=== PATIENT | female | born 1960 | race Hispanic/Latino ===

== ENCOUNTER 2020-01-11 10:46 | Emergency (ER) | payer MEDICARE ==
[~2020-01-11] VITALS: Ht 157.5 cm; Wt 67.6 kg
[2020-01-11] MEDS ORDERED: SODIUM CHLORIDE 0.9% 1000ML 1,000 ML IV STA (10:48)
--- NOTE | 2020-01-11 10:53 | Emergency Department Note ---
History of Present Illnes History of Present Illness History of Present Illness This is a 59 year old female presents with epigastric pain with n/v. Denies fevers or CP. Recent diagnosis of ovarian CA May 2019 with resultant colon resection followed by reversal. Recent complication of abscess formation following colostomy reversal with resultant new colostomy placement 2 weeks ago. . Historian: Patient, Family Member Arrival Mode: Car Onset (how long ago): day(s) (2) Location: epigastric Severity: moderate Onset quality: gradual Duration (how long): day(s) (2) Timing of current episode: constant Progression: worsening Chronicity: new Context: Denies recent illness, Denies recent surgery, Denies recent immobilization, Denies recent travel, Denies trauma/injury, Denies new medications, Denies hx of DVT/PE, Denies non-compliance w/ medications, Denies o ther Exacerbating factors: eating Associated symptoms: Reports nausea/vomiting Treatments prior to arrival: none Past Medical/Family History Physician Review I have reviewed the patient's past medical and family history. Any updates have been documented here. Past Medical History Other Medical History: Ovarian CA Past Surgical History: Colon Resection Other Surgery: Colostomy Social History Smoking Cessation: Never Smoker Alcohol Use: None Any Illegal Drug Use: No Review of Systems Review of Systems Constitutional: Reports weakness; Denies fever Gastrointestinal: Reports nausea, Reports vomiting Physical Exam Related Data Allergies: Coded Allergies: apple (Verified Allergy, Unknown, 01/11/20) peach (Verified Allergy, Unknown, 01/11/20) Vital signs reviewed: Yes Physical Exam CONSTITUTIONAL Constitutional: Present cachectic; Absent well-nourished, Absent obese, Absent distressed, Absent ill appearing HENT HENT: Present normocephalic, Present atraumatic, Present oropharynx clear/moist, Present nose normal HENT L/R: Present left ext ear normal, Present right ext ear normal EYES Eyes: Reports PERRL, Reports conjunctivae normal NECK Neck: Present ROM normal PULMONARY Pulmonary: Present effort normal, Present breath sounds normal CARDIOVASCULAR Cardiovascular: Present regular rhythm, Present heart sounds normal, Present capillary refill normal, Present normal rate GASTROINTESTINAL Abdominal: Present soft, Present nontender, Present bowel sounds normal GENITOURINARY Genitourinary: Present exam deferred SKIN Skin: Present warm, Present dry MUSCULOSKELETAL Musculoskeletal: Present ROM normal NEUROLOGICAL Neurological: Present alert, Present oriented x 3, Present no gross motor or sensory deficits PSYCHOLOGICAL Psychological: Present mood/affect normal, Present judgement normal Results Laboratory Lab results reviewed: Yes Imaging Imaging results reviewed: Yes Impressions [place] [id number] Patient Name: ARLENE BALL MR #: [id number] : 1960 Age/Sex: 59/F Req #: [id number] Adm Physician: Ordered by: TOM MONTESINOS DO Report #: [id number] Location: ER Room/Bed: Procedure: [id number] CT/CT ABDOMEN/PELVIS W Exam Date: 01/11/20 Exam Time: 1230 REPORT STATUS: Signed CT of the abdomen and pelvis with contrast TECHNIQUE: CT of the abdomen and pelvis WITH intravenous contrast and WITH oral contrast. Dose modulation, iterative reconstruction, and/or weight-based adjustment of the mA/kV was utilized to reduce the radiation dose to as low as reasonably achievable. IV CONTRAST: 100 mL of Isovue-370 ORAL CONTRAST: Gastrografin RADIATION DOSE: Total DLP: 659.33 mGy*cm COMPLICATIONS: None INDICATION: ^epigastric , r/o SBO ^[id number] ^1230. COMPARISON: None. FINDINGS: LOWER THORAX: Unremarkable. HEPATOBILIARY: No focal hepatic lesions. Gallbladder is unremarkable. No biliary ductal dilatation. SPLEEN: No splenomegaly. PANCREAS: No focal masses or ductal dilatation. ADRENALS: No adrenal nodules. KIDNEYS/URETERS: No hydronephrosis, stones, or masses. PELVIC ORGANS/BLADDER: Urinary bladder is unremarkable. PERITONEUM/RETROPERITONEUM: No free air or fluid. LYMPH NODES: No lymphadenopathy. VESSELS: Left ovarian vein thrombus is noted, nonspecific. Negative for abdominal aortic aneurysm.. GI TRACT: Oral contrast is identified within the stomach, small bowel loops and extending into the colon to the level of the left lower quadrant colostomy. There is mild questionable wall thickening of the transverse colon and left lower quadrant colostomy which could relate to artifact of under distention versus colitis. No surrounding drainable fluid collection is identified. At the level of the rectal stump there is extraluminal fluid and air best visualized on coronal imaging (images 61 through 72). Collection of fluid and air is noted adjacent to the suture material at the level of the rectal stump. The collection extends to the vaginal cough which demonstrates intraluminal air, nonspecific. Negative for obstruction. BONES AND SOFT TISSUES: No acute osseous abnormality. T12 vertebral angioma is noted. No suspicious lytic or blastic lesion is identified. Midline surgical scar is noted in the infraumbilical region. IMPRESSION: 1. Post surgical changes from left lower quadrant colostomy and creation of rectal stump. -There is questionable wall thickening of the transverse colon extending to the left lower quadrant colostomy which could relate to mild colitis. No adjacent fluid collection is noted. No evidence of obstruction. -At the level of the rectal stump there is a small collection of predominantly air and a small amount of fluid extending from the stump into the adjacent pelvic soft tissues, this is best visualized on coronal imaging. This collection does extend to the vaginal cuff. This could relate to postsurgical change if the surgery was performed recently. Air is also noted within the vaginal cuff which is nonspecific and could relate to recent sexual activity vs. fistula from adjacent fluid collection. Correlate with symptoms and history. 2. Incidentally noted left ovarian vein thrombus. Signed by: Shola Weeks MD on 01/11/2020 1:05 PM Dictated By: SHOLA WEEKS MD 1305 Transcribed By: JOCELYNE on 01/11/20 1305 COPY TO: TOM MONTESINOS DO~ Procedures 12 Lead ECG Interpretation ECG Interpretation : ECG: ECG 1 Apparel Merchandiser: Interpreted by ED physician Date: Jan 11, 2020 Time: 13:54 Prior ECG tracings: reviewed Rhythm: sinus rhythm Rate: normal BPM: 94 QRS axis: normal ST segments normal: Yes T waves normal: Yes Clinical Impression: normal ECG Assessment & Plan Medical Decision Making MDM Diff DX : ACS, SBO, biliary bathology, dehydration Assessment & Plan Final Impression: (1) Colitis Depart Disposition: TRANS TO OTHER [facility] TOM MONTESINOS DO Jan 11, 2020 10:53
[2020-01-11] MEDS ORDERED: DIATRIZOATE MEGL/DIATRIZOA SOD 30 ML BTL PO ONE (11:02)
[2020-01-11] MEDS ORDERED: IOPAMIDOL 370 MG/ML 50ML INFUS..BTL INJ ONE (11:06)
[2020-01-11] MEDS ORDERED: ONDANSETRON HCL INJ 2MG/ML 2ML 2 MG/ML VIAL IV STA ×2 (11:16→12:17)
[2020-01-11 11:39] LABS: BASOPHILS % 0.2 % (0.0-1.0); HEMATOCRIT 35.8 % (34.2-44.1); HEMOGLOBIN 11.3 g/dL (12.0-16.0); LYMPHOCYTES # (AUTO) 2.6 (1.0-3.2); LYMPHOCYTES % 45.3 % (18.0-39.1); MEAN CORPUSCULAR HEMOGLOBIN 27.9 pg (28-32); MEAN CORPUSCULAR HGB CONC 31.6 g/dL (31-35); MEAN CORPUSCULAR VOLUME 88.4 fL (81-99); MONOCYTES # (AUTO) 0.4 (0.2-0.8); MONOCYTES % 7.3 % (4.4-11.3); NEUTROPHILS # (AUTO) 2.7 (2.1-6.9); NEUTROPHILS % 46.3 % (38.7-80.0); PLATELET COUNT 265 x10e3/uL (140-360); RED BLOOD COUNT 4.05 x10e6/uL (3.6-5.1); RED CELL DISTRIBUTION WIDTH 15.7 % (11.7-14.4)
[2020-01-11 11:44] LABS: CLARITY,URINE CLEAR (CLEAR); COLOR,URINE YELLOW (YELLOW); KETONES,URINE NEGATIVE (NEGATIVE); LEUKOCYTE ESTERASE ,URINE NEGATIVE (NEGATIVE); NITRITE,URINE NEGATIVE (NEGATIVE); PROTEIN,URINE DIPSTICK TRACE (NEGATIVE); URINE UROBILINOGEN 0.2 mg/dL (0.2 - 1)
[2020-01-11 11:45] LABS: BILIRUBIN,URINE NEGATIVE (NEGATIVE)
[2020-01-11 11:53] LABS: ALANINE AMINOTRANSFERASE 11 IU/L (0-55); ALBUMIN 4.5 g/dL (3.5-5.0); ALBUMIN/GLOBULIN RATIO 1.1 (0.8-2.0); ALKALINE PHOSPHATASE 71 IU/L (40-150); BLOOD UREA NITROGEN 13 mg/dL (7-26); BUN/CREATININE RATIO 18 (6-25); CARBON DIOXIDE 26 mmol/L (22-29); CHLORIDE 101 mmol/L (98-107); CREATININE, SERUM 0.74 mg/dL (0.57-1.11); EST GLOMERULAR FILTRATION RATE > 60 ML/MIN (60-); GLUCOSE 116 mg/dL (74-118); SODIUM 139 mmol/L (136-145)
--- NOTE | 2020-01-11 12:00 | NUR ---
Pt's most recent surgery at [facility]
--- NOTE | 2020-01-11 12:02 | NUR ---
Pt's dr was Dr Ana Harman.
[2020-01-11 12:05] LABS: BACTERIA,URINE FEW /HPF; EPITHELIAL CELLS,URINE FEW /LPF; RBC,URINE 0-5 /HPF (0-5); WBC,URINE (MAN) 0-5 /HPF (0-5)
[2020-01-11] MEDS ORDERED: MORPHINE SULFATE INJ 4 MG/ML INJ 1ML IV STA (12:17)
--- NOTE | 2020-01-11 12:20 | NUR ---
called [facility] for transfer.
--- NOTE | 2020-01-11 13:08 | Diagnostic Imaging Report ---
CT of the abdomen and pelvis with contrast TECHNIQUE: CT of the abdomen and pelvis WITH intravenous contrast and WITH oral contrast. Dose modulation, iterative reconstruction, and/or weight-based adjustment of the mA/kV was utilized to reduce the radiation dose to as low as reasonably achievable. IV CONTRAST: 100 mL of Isovue-370 ORAL CONTRAST: Gastrografin RADIATION DOSE: Total DLP: 659.33 mGy*cm COMPLICATIONS: None INDICATION: ^epigastric , r/o SBO ^[id number] ^1230. COMPARISON: None. FINDINGS: LOWER THORAX: Unremarkable. HEPATOBILIARY: No focal hepatic lesions. Gallbladder is unremarkable. No biliary ductal dilatation. SPLEEN: No splenomegaly. PANCREAS: No focal masses or ductal dilatation. ADRENALS: No adrenal nodules. KIDNEYS/URETERS: No hydronephrosis, stones, or masses. PELVIC ORGANS/BLADDER: Urinary bladder is unremarkable. PERITONEUM/RETROPERITONEUM: No free air or fluid. LYMPH NODES: No lymphadenopathy. VESSELS: Left ovarian vein thrombus is noted, nonspecific. Negative for abdominal aortic aneurysm.. GI TRACT: Oral contrast is identified within the stomach, small bowel loops and extending into the colon to the level of the left lower quadrant colostomy. There is mild questionable wall thickening of the transverse colon and left lower quadrant colostomy which could relate to artifact of under distention versus colitis. No surrounding drainable fluid collection is identified. At the level of the rectal stump there is extraluminal fluid and air best visualized on coronal imaging (images 61 through 72). Collection of fluid and air is noted adjacent to the suture material at the level of the rectal stump. The collection extends to the vaginal cough which demonstrates intraluminal air, nonspecific. Negative for obstruction. BONES AND SOFT TISSUES: No acute osseous abnormality. T12 vertebral angioma is noted. No suspicious lytic or blastic lesion is identified. Midline surgical scar is noted in the infraumbilical region. IMPRESSION: 1. Post surgical changes from left lower quadrant colostomy and creation of rectal stump. -There is questionable wall thickening of the transverse colon extending to the left lower quadrant colostomy which could relate to mild colitis. No adjacent fluid collection is noted. No evidence of obstruction. -At the level of the rectal stump there is a small collection of predominantly air and a small amount of fluid extending from the stump into the adjacent pelvic soft tissues, this is best visualized on coronal imaging. This collection does extend to the vaginal cuff. This could relate to postsurgical change if the surgery was performed recently. Air is also noted within the vaginal cuff which is nonspecific and could relate to recent sexual activity vs. fistula from adjacent fluid collection. Correlate with symptoms and history. 2. Incidentally noted left ovarian vein thrombus. Signed by: Stan Thomas MD on 01/11/2020 1:05 PM
--- NOTE | 2020-01-11 13:18 | NUR ---
[facility] arrived in ED for pt transport to [facility] ER. Pt & family notified.
--- NOTE | 2020-01-11 13:30 | NUR ---
Patient report was called [facility] ER, spoke with Olu PATEL.
[2020-01-11] MEDS ORDERED: SODIUM CHLORIDE 0.9% INJ 50 ML BAG IV ONE (17:10)
== END 2020-01-11 13:26 | disposition short-term general hospital (02) ==
LOC: ER 11:05
DX: R10.13 Epigastric pain (principal); R11.2 Nausea with vomiting, unspecified; K52.9 Noninfective gastroenteritis and colitis, unspecified; Z93.3 Colostomy status
CPT/HCPCS: 36415; 74177; 80053; 81001; 83690; 85025; 93005; 99284; J2270; J2405; J7030; Q9967

== ENCOUNTER 2024-03-13 09:27 | Emergency (ER) | payer MEDICARE ==
[~2024-03-13] VITALS: Ht 157.5 cm; Wt 67.6 kg
[2024-03-13 09:32] VITALS: TEMP 98.6
[2024-03-13 10:00] LABS: BASOPHILS % 0.2 % (0.0-1.0); HEMATOCRIT 33.4 % (34.2-44.1); HEMOGLOBIN 10.1 g/dL (12.0-16.0); LYMPHOCYTES # (AUTO) 1.9 (1.0-3.2); LYMPHOCYTES % 42.9 % (18.0-39.1); MEAN CORPUSCULAR HEMOGLOBIN 26.9 pg (28-32); MEAN CORPUSCULAR HGB CONC 30.2 g/dL (31-35); MEAN CORPUSCULAR VOLUME 88.8 fL (81-99); MONOCYTES # (AUTO) 0.3 (0.2-0.8); MONOCYTES % 7.6 % (4.4-11.3); NEUTROPHILS # (AUTO) 2.1 (2.1-6.9); NEUTROPHILS % 49.1 % (38.7-80.0); PLATELET COUNT 202 x10e3/uL (140-360); RED BLOOD COUNT 3.76 x10e6/uL (3.6-5.1); RED CELL DISTRIBUTION WIDTH 14.4 % (11.7-14.4); WHITE BLOOD COUNT 4.36 x10e3/uL (4.8-10.8)
[2024-03-13 10:02] LABS: BILIRUBIN,URINE NEGATIVE (NEGATIVE); CLARITY,URINE CLEAR (CLEAR); COLOR,URINE YELLOW (YELLOW); GLUCOSE, URINE NEGATIVE (NEGATIVE); KETONES,URINE NEGATIVE (NEGATIVE); LEUKOCYTE ESTERASE ,URINE NEGATIVE (NEGATIVE); NITRITE,URINE NEGATIVE (NEGATIVE); PH,URINE 5.5 (5 - 7); PROTEIN,URINE DIPSTICK TRACE (NEGATIVE); URINE UROBILINOGEN 0.2 mg/dL (0.2 - 1)
[2024-03-13 10:05] LABS: BACTERIA,URINE FEW /HPF; EPITHELIAL CELLS,URINE FEW /LPF; MUCUS,URINE FEW (RARE); RBC,URINE 0-5 /HPF (0-5); WBC,URINE (MAN) 0-5 /HPF (0-5)
[2024-03-13] MEDS: Morphine 4mg INJECTION 4 MG/ML INJ IV STA (10:10)
[2024-03-13] MEDS: ONDANSETRON HCL INJ 2MG/ML 2ML 2 MG/ML VIAL IV STA (10:10)
[2024-03-13] MEDS: SODIUM CHLORIDE 0.9% 500ML 500 ML IV ONE (10:11)
[2024-03-13 10:14] LABS: INR 0.94; PROTHROMBIN TIME 13.2 seconds (11.9-14.5)
[2024-03-13 10:15] LABS: PARTIAL THROMBOPLASTIN TIME 34.1 seconds (23.8-35.5)
[2024-03-13 10:23] LABS: ALBUMIN 3.7 g/dL (3.5-5.0); ALBUMIN/GLOBULIN RATIO 0.9 (0.8-2.0); ANION GAP 15.2 mmol/L (8-16); BILIRUBIN,TOTAL 0.4 mg/dL (0.2-1.2); CALCIUM 9.4 mg/dL (8.4-10.2); CREATININE, SERUM 0.83 mg/dL (0.57-1.11); MAGNESIUM 1.9 MG/DL (1.3-2.1); POTASSIUM 4.2 mmol/L (3.5-5.1)
[2024-03-13 11:00] VITALS: PULSE 66; RESP 17; O2SAT 100
[2024-03-13] MEDS ORDERED: IOPAMIDOL 370 MG/ML 100 ML INFUS..BTL INJ ONE (11:08)
[2024-03-13] MEDS ORDERED: AMOX TR-K CLV1 EAC2 PO (13:24)
[2024-03-13] MEDS ORDERED: DICYCLOMINE HCL10 MG PO (13:24)
[2024-03-13] MEDS ORDERED: METRONIDAZOLE500 MG PO (13:24)
== END 2024-03-13 13:56 | disposition home or self-care (01) ==
LOC: ER 09:34
DX: R10.30 Lower abdominal pain, unspecified (principal); C56.9 Malignant neoplasm of unspecified ovary; K80.20 Calculus of gallbladder without cholecystitis without obstruction; I10 Essential (primary) hypertension; Z79.60 Long term (current) use of unspecified immunomodulators and immunosuppressants; Z93.3 Colostomy status
CPT/HCPCS: 36415; 71045; 74177; 80053; 81001; 83690; 83735; 85025; 85610; 85730; 87086; 93005; 99284; J2270; J2405; J7040; Q9967